=== PATIENT | female | born 1945 | race African-American/Black ===

== ENCOUNTER 2019-04-28 15:27 | Emergency (ER) | payer MEDICARE ==
[~2019-04-28] VITALS: Ht 162.6 cm; Wt 76.0 kg
[2019-04-28] MEDS ORDERED: FAMOTIDINE 20MG TABLET PO ONE (16:15)
[2019-04-28] MEDS ORDERED: ACETAMINOPHEN 325MG TABLET PO ONE (16:15)
[2019-04-28] MEDS ORDERED: MAGNESIUM/ALUMINUM HYDROXIDE/SIMETHICONE 30ML UDC PO ONE (16:15)
[2019-04-28 16:22] LABS: BASOPHILS % 1.1 % (0.0-2.0); HEMATOCRIT. 40.4 % (36.0-48.0); HEMOGLOBIN. 13.7 g/dL (12.0-16.0); LYMPHOCYTES % 51.3 % (20.0-50.0); MEAN CORPUSCULAR HEMOGLOBIN 31.7 pg (28.0-32.0); MEAN CORPUSCULAR VOLUME 93.4 fL (81.0-99.0); MEAN PLATELET VOLUME 9.7 fl (7.4-10.4); MONOCYTES % 8.4 % (2.0-8.0); NEUTROPHILS % 38.2 % (40.0-76.0); PLATELET 215 x1000/uL (130-400); RED BLOOD CELL COUNT 4.32 mill/uL (4.2-5.4); RED CELL DISTRIBUTION WIDTH 14.1 % (11.6-14.6)
[2019-04-28 17:17] LABS: CHLORIDE 108 mEq/L (98-107)
[2019-04-28 18:05] VITALS: BP 146/55
== END 2019-04-28 18:23 | disposition home or self-care (01) ==
LOC: ER 15:27
DX: I10 Essential (primary) hypertension (principal); R42 Dizziness and giddiness; E11.9 Type 2 diabetes mellitus without complications; Z88.0 Allergy status to penicillin
CPT/HCPCS: 36415; 71045; 80053; 84484; 85025; 93005; 99285